=== PATIENT | male | born 1955 | race Caucasian/White ===

== ENCOUNTER 2016-10-22 10:34 | Emergency (ER) | payer MEDICARE, MEDICAID ==
[2016-10-22] MEDS ORDERED: ZYRTEC10 M7 PO (10:48)
[2016-10-22] MEDS ORDERED: LYRICA PO (10:55)
[2016-10-22] MEDS ORDERED: PAXIL40 M1 PO (10:55)
[2016-10-22] MEDS ORDERED: CYCLOBENZAPRINE10 M1 PO (10:56)
[2016-10-22] MEDS ORDERED: CYCLOBENZAPRINE5 M1 PO (12:07)
[2016-10-22] MEDS ORDERED: PREDNISONE20 M1 PO (12:07)
[2016-10-22] MEDS ORDERED: PROAIR HFA8.5 GM (12:07)
[2016-10-22] MEDS ORDERED: OMEPRAZOLE20 M3 PO (12:07)
== END 2016-10-22 12:30 ==
LOC: EDMED 10:34
DX: R05 Cough (principal); R06.02 Shortness of breath; E11.9 Type 2 diabetes mellitus without complications; Z98.890 Other specified postprocedural states; Z79.899 Other long term (current) drug therapy; F17.210 Nicotine dependence, cigarettes, uncomplicated